=== PATIENT | female | born 1990 | race Caucasian/White ===

== ENCOUNTER 2017-09-12 21:37 | Emergency (ER) | payer BC ==
[~2017-09-12] VITALS: Ht 165.1 cm; Wt 63.5 kg
[2017-09-12 21:40] VITALS: BP 131/94
[2017-09-12] MEDS ORDERED: PSEUDOEPHEDRINE HCL 30 MG TABLET ONE (22:46)
[2017-09-12] MEDS: PSEUDOEPHEDRINE HCL 30 MG TABLET PO ONE (22:50)
== END 2017-09-12 22:53 | disposition home or self-care (01) ==
LOC: ER 21:48
DX: H65.92 Unspecified nonsuppurative otitis media, left ear (principal); H92.02 Otalgia, left ear
CPT/HCPCS: 99283; A4606; Z7610

== ENCOUNTER 2021-03-14 05:47 | Emergency (ER) | payer SELFPAY ==
[~2021-03-14] VITALS: Ht 167.6 cm; Wt 68.0 kg
--- NOTE | 2021-03-14 06:40 | NUR ---
PT BIBS WITH C/O FLU SYMPTOMS SINCE MAR 03 ACCOMPANIED BY BODY ACHES, LOWER BACK AND LEG PAIN, NECK PAIN, ,SWOLLEN LYMPH NODES, AND RUNNY NOSE. PT IS AAO X 4, BREATHING EVEN AND UNLABORED. PT WAS SEEN AND EXAMINED BY DR SIMPSON. WILL CONTINUE TO MONITOR AND CARRY OUT MD ORDERS
--- NOTE | 2021-03-14 06:50 | NUR ---
COVID SWAB DONE, SENT TO LAB
[2021-03-14] MEDS ORDERED: METH4TAB3 PO (06:53)
[2021-03-14] MEDS ORDERED: IBUP-1955 PO (06:53)
--- NOTE | 2021-03-14 07:08 | NUR ---
LAB AT BEDSIDE FOR BLOOD DRAW MONOTEST
[2021-03-14 07:32] VITALS: BP 124/90
[2021-03-14 08:45] LABS: MONOTEST NEGATIVE (NEGATIVE)
== END 2021-03-14 07:32 | disposition home or self-care (01) ==
LOC: ER 05:51
DX: B34.9 Viral infection, unspecified (principal); Z20.822 Contact with and (suspected) exposure to COVID-19; I88.9 Nonspecific lymphadenitis, unspecified; R03.0 Elevated blood-pressure reading, without diagnosis of hypertension
CPT/HCPCS: 36415; 86308; 87426; 99283; C9803